=== PATIENT | male | born 1930 | race Hispanic/Latino ===

== ENCOUNTER 2020-05-14 06:05 | Day surgery (SDC) | payer MEDICARE, OTHER ==
[2020-05-11 13:15] LABS: EOSINOPHILS % (AUTO) 2.1 % (0.0-8.0); HEMATOCRIT 40.3 % (42-54); LYMPHOCYTES % (AUTO) 35.3 % (21.0-51.0); MEAN CORPUSCULAR HEMOGLOBIN 30.8 pg (27.0-33.0); MEAN CORPUSCULAR VOLUME 93.3 fL (79-99); MONOCYTES % (AUTO) 8.3 % (3.0-13.0); NEUTROPHILS % (AUTO) 52.8 % (40.0-77.0); PLATELET COUNT (AUTO) 324 K/uL (130-400); RED BLOOD CELL COUNT(AUTO) 4.32 MIL/uL (4.50-6.20); RED CELL DISTRIBUTION WIDTH 14.1 % (11.0-15.5); WHITE BLOOD COUNT (AUTO) 9.4 K/uL (4.8-10.8)
[2020-05-11 13:17] LABS: APPEARANCE,URINE Clear (CLEAR); BILIRUBIN,URINE Negative (NEGATIVE); COLOR,URINE Yellow (YELLOW); GLUCOSE, URINE (UA) Negative (NEGATIVE); KETONES,URINE Negative (NEGATIVE); LEUKOCYTE ESTERASE ,URINE Negative (NEGATIVE); NITRATE,URINE Negative (NEGATIVE); OCCULT BLOOD,URINE Negative (NEGATIVE); PROTEIN,URINE Negative (NEGATIVE)
[2020-05-11 13:35] LABS: CREATININE 1.8 mg/dL (0.5-1.5); POTASSIUM 4.6 mmol/L (3.5-5.1)
[2020-05-11 13:39] LABS: INR 1.02 (0.85-1.15); PARTIAL THROMBOPLASTIN TIME 24.3 SEC (26.3-35.5)
--- NOTE | 2020-05-11 16:33 | NUR ---
DR YBARRA CALLED AND MADE AWARE OF ABNORMAL LABS AND IODINE ALLERGY- ORDERS RECEIVED FOR IV NS AT 150L/HR , SOLUMEDROL 125 MG IV, BENADRYL 25MG IV PRIOR TO PROCEDURE
[2020-05-11 17:10] VITALS: BP 103/51
[2020-05-14] VITALS (9 sets, daily range): BP systolic 120–146; BP diastolic 56–85
[~2020-05-14] VITALS: Ht 165.1 cm; Wt 72.6 kg
[~2020-05-14 06:05] MED LIST: AEC81 PO; AMLO-258 PO; ATOR40TA71 PO; BRIM5DRO OD; CILO50TA PO; FENO160T16 PO; FINA5TAB41 PO; FLUT16H NASAL; FURO20TA4 PO; LOSA25TA41 PO; MEMA10TA55 PO; METO-408 PO; NITR0.4T50 SL; OMEP20CA12 PO; RANO10005 PO; REPA2TAB8 PO; TRAV2.5D OU; TRULICITY SQ
[2020-05-14] MEDS ORDERED: SODIUM CHLORIDE 0.9% 1000ML 1,000 ML IV ONE (06:28)
[2020-05-14 06:49] LABS: CREATININE 1.8 mg/dL (0.5-1.5); POTASSIUM 4.6 mmol/L (3.5-5.1)
--- NOTE | 2020-05-14 07:18 | NUR ---
PROCEDURE PT HERE FOR PROCEDURE. DENIES ANY PAIN AT THIS TIME. AT BEDSIDE.
[2020-05-14] MEDS ORDERED: SODIUM CHLORIDE 0.9% 1000ML 1,000 ML IV SCH ×2 (08:00→12:45)
[2020-05-14] MEDS ORDERED: METHYLPREDNISOLONE SOD SUCC 125MG/2ML VIAL ONE (10:34)
[2020-05-14] MEDS ORDERED: DiphenhydrAMINE HCL 50 MG/ML VIAL ONE (10:34)
[2020-05-14] MEDS ORDERED: FENTANYL CITRATE PF 50 MCG/1 ML 2ML VIAL ONE ×2 (11:18→12:28)
[2020-05-14] MEDS ORDERED: NITROGLYCERIN 2 MG/VIAL VIAL IV ONE (11:18)
[2020-05-14] MEDS ORDERED: IODIXANOL 320 MG/ML 100 ML VIAL ONE (11:18)
[2020-05-14] MEDS ORDERED: NICARDIPINE HCL 25 MG/10 ML ML IV ONE (11:18)
[2020-05-14] MEDS ORDERED: HEPARIN SODIUM 1000UNIT/ML 10ML VIAL ONE (11:18)
[2020-05-14] MEDS ORDERED: MIDAZOLAM HCL 1 MG/ML 2ML VIAL ONE (11:18)
[2020-05-14] MEDS ORDERED: LIDOCAINE HCL 2% 20ML ONE (11:18)
[2020-05-14] MEDS ORDERED: CLOPIDOGREL BISULFATE 300 MG TAB ONE (11:58)
[2020-05-14] MEDS ORDERED: ASPIRIN 325MG EC TAB 325 MG TABLET.DR PO ONE (12:33)
--- NOTE | 2020-05-14 13:00 | NUR ---
PROCEDURE PT RETURNED FROM PROCEDURE. MYNX TO LEFT GROIN. SOFT TO TOUCH. INSTRUCTED BOTH PT AND IN REGARDS TO NOT LIFTING HEAD UP OFF OF BED OR MOVING LEFT LEG. BOTH VERBALIZED UNDERSTANDING.
--- NOTE | 2020-05-14 14:35 | NUR ---
REPORT RECEIVED FROM ANTHONY HARDWICK RN USING SBAR AT BEDSIDE. DRESSING TO LEFT GROIN DRY/INTACT. NO HEMATOMA/BLEEDING NOTED. AREA SOFT/NONTENDER.
--- NOTE | 2020-05-14 14:35 | NUR ---
REPORT REPORT GIVEN TO KELLIE CAMPUZANO. NO BLEEDING, OOZING NOTED TO SITE.
--- NOTE | 2020-05-14 17:08 | NUR ---
patient discharged from facility via wheelchair by dahlia hilliard rn. patient assisted into private vehicle by nurse, driven by family.
== END 2020-05-14 17:10 | disposition home or self-care (01) ==
LOC: DAH 06:05
PROVIDERS: ATTEND Internal Medicine Cardiovascular Disease
DX: I70.211 Atherosclerosis of native arteries of extremities with intermittent claudication, right leg (principal); E11.51 Type 2 diabetes mellitus with diabetic peripheral angiopathy without gangrene; E11.22 Type 2 diabetes mellitus with diabetic chronic kidney disease; I12.9 Hypertensive chronic kidney disease with stage 1 through stage 4 chronic kidney disease, or unspecified chronic kidney disease; N18.9 Chronic kidney disease, unspecified; I25.10 Atherosclerotic heart disease of native coronary artery without angina pectoris; E78.5 Hyperlipidemia, unspecified; Z79.01 Long term (current) use of anticoagulants; Z79.899 Other long term (current) drug therapy; Z98.890 Other specified postprocedural states; Z79.82 Long term (current) use of aspirin; Z88.8 Allergy status to other drugs, medicaments and biological substances; Z91.018 Allergy to other foods; Z95.1 Presence of aortocoronary bypass graft
CPT/HCPCS: 36247; 36415 ×2; 71045; 75625; 75716; 80048 ×2; 81003; 82948 ×2; 85025; 85610; 85730; 93005; A4215; A4216; A4221; A4223 ×3; A4606; A4663; C1760; C1769 ×2; C1887; C1893; C1894 ×2; J1200; J1644 ×2; J2250; J2930; J3010 ×2; J3490 ×3; J7030 ×2; Q9967; 96360; 96361; 99156; 99157

== ENCOUNTER 2020-06-08 07:41 | Day surgery (SDC) | payer MEDICARE, OTHER ==
[2020-06-06 12:53] LABS: HEMATOCRIT 42.6 % (42-54); MEAN CORPUSCULAR HEMOGLOBIN 30.6 pg (27.0-33.0); MEAN CORPUSCULAR HGB CONC 32.4 g/dL (32.0-36.0); MEAN CORPUSCULAR VOLUME 94.5 fL (79-99); PLATELET COUNT (AUTO) 338 K/uL (130-400); RED BLOOD CELL COUNT(AUTO) 4.51 MIL/uL (4.50-6.20); RED CELL DISTRIBUTION WIDTH 12.8 % (11.0-15.5); WHITE BLOOD COUNT (AUTO) 8.4 K/uL (4.8-10.8)
[2020-06-06 13:11] LABS: CREATININE 1.5 mg/dL (0.5-1.5)
[2020-06-06 13:14] LABS: INR 1.04 (0.85-1.15); PARTIAL THROMBOPLASTIN TIME 25.3 SEC (26.3-35.5); PROTHROMBIN TIME 11.2 SEC (9.6-11.6)
[2020-06-06 13:52] LABS: LYMPHOCYTES % (MANUAL) 38 % (22-44); MONOCYTES % (MANUAL) 6 % (2-9); SEGMENTED NEUTROPHILS % 56 % (40-70)
[2020-06-06 13:53] LABS: MAN.DIFF COMMENT-IMPRESSION MANUAL DIFFERENTIAL
[2020-06-06 13:55] LABS: PLATELET MORPHOLOGY COMMENT ADEQUATE
[2020-06-07 14:06] VITALS: BP 126/58
--- NOTE | 2020-06-07 15:36 | NUR ---
CXR/EKG ABNORMAL EKG AND CXR REPORTED TO LIZY/DR. YBARRA AT [facility]. NO NEW TELEPHONE ORDERS RECEIVED. OK TO PROCEED WITH SCHEDULED PROCEDURE.
[2020-06-08] VITALS (9 sets, daily range): BP systolic 114–134; BP diastolic 55–71
[~2020-06-08] VITALS: Ht 165.1 cm; Wt 72.9 kg
[~2020-06-08 07:41] MED LIST changes: -BRIM5DRO OD; +DiphenhydrAMINE HCL 50 MG/ML VIAL IVP SCH; +FISH1CAP27 PO; +METHYLPREDNISOLONE SOD SUCC 125MG/2ML VIAL IVP SCH; +SODIUM CHLORIDE 0.9% 500ML 500 ML IV SCH; -TRAV2.5D OU; +UBID100C45 PO
[2020-06-08] MEDS ORDERED: SODIUM CHLORIDE 0.9% 1000ML 1,000 ML IV ONE (08:30)
[2020-06-08] MEDS ORDERED: HEPARIN SODIUM 1000UNIT/ML 10ML VIAL ONE (12:26)
[2020-06-08] MEDS ORDERED: NITROGLYCERIN 2 MG/VIAL VIAL IV ONE (12:26)
[2020-06-08] MEDS ORDERED: FENTANYL CITRATE PF 50 MCG/1 ML 2ML VIAL ONE (12:27)
[2020-06-08] MEDS ORDERED: LIDOCAINE HCL 2% 20ML ONE (12:27)
[2020-06-08] MEDS ORDERED: IODIXANOL 320 MG/ML 100 ML VIAL ONE (12:27)
[2020-06-08] MEDS ORDERED: MIDAZOLAM HCL 1 MG/ML 2ML VIAL ONE (12:27)
--- NOTE | 2020-06-08 12:35 | NUR ---
Transport to clinical lab specialist Taken to clinical lab specialist via bed. Report given to Report given to Car HOPKINS A&O. Denies pain. at bedside with belongings.
[2020-06-08] MEDS ORDERED: ASPIRIN 325MG EC TAB 325 MG TABLET.DR PO ONE (13:08)
[2020-06-08] MEDS ORDERED: CLOPIDOGREL BISULFATE 300 MG TAB ONE (13:09)
[2020-06-08] MEDS ORDERED: SODIUM CHLORIDE 0.9% 1000ML 1,000 ML IV SCH (15:15)
--- NOTE | 2020-06-08 15:40 | NUR ---
elimination: voided 350 cc yelow color urine per urinal.
== END 2020-06-08 18:40 | disposition home or self-care (01) ==
LOC: DAH 07:41
PROVIDERS: ATTEND Internal Medicine Cardiovascular Disease
DX: I70.201 Unspecified atherosclerosis of native arteries of extremities, right leg (principal); I25.10 Atherosclerotic heart disease of native coronary artery without angina pectoris; Z95.1 Presence of aortocoronary bypass graft; I12.9 Hypertensive chronic kidney disease with stage 1 through stage 4 chronic kidney disease, or unspecified chronic kidney disease; E11.22 Type 2 diabetes mellitus with diabetic chronic kidney disease; N18.30 Chronic kidney disease, stage 3 unspecified; E86.0 Dehydration; E78.5 Hyperlipidemia, unspecified; Z91.048 Other nonmedicinal substance allergy status; Z88.8 Allergy status to other drugs, medicaments and biological substances; Z79.01 Long term (current) use of anticoagulants; Z79.899 Other long term (current) drug therapy
CPT/HCPCS: 36415; 37225; 71045; 80048; 82948; 85025; 85610; 85730; 93005; 96360; 96361; A4215; A4221; A4222; A4223; A4663; C1760; C1769 ×2; C1874; C1887 ×2; C1893; C1894 ×2; J1200; J1644 ×3; J2250; J2930; J3010; J3490 ×2; J7030; Q9967; 37224; 99156; 99157

== ENCOUNTER 2020-10-02 12:00 | Inpatient (IN) | payer MEDICARE, OTHER ==
[~2020-10-02] VITALS: Ht 165.1 cm; Wt 75.2 kg
[~2020-10-02 12:00] MED LIST changes: -DiphenhydrAMINE HCL 50 MG/ML VIAL IVP SCH; -METHYLPREDNISOLONE SOD SUCC 125MG/2ML VIAL IVP SCH; -NITR0.4T50 SL; -SODIUM CHLORIDE 0.9% 500ML 500 ML IV SCH; -UBID100C45 PO
[2020-10-02 15:26] LABS: BASOPHILS % (AUTO) 1.1 % (0.0-5.0); EOSINOPHILS % (AUTO) 3.9 % (0.0-8.0); HEMATOCRIT 42.8 % (42-54); LYMPHOCYTES % (AUTO) 26.3 % (21.0-51.0); MEAN CORPUSCULAR HEMOGLOBIN 29.4 pg (27.0-33.0); MEAN CORPUSCULAR HGB CONC 32.5 g/dL (32.0-36.0); MEAN CORPUSCULAR VOLUME 90.7 fL (79-99); MONOCYTES % (AUTO) 8.1 % (3.0-13.0); NEUTROPHILS % (AUTO) 60.4 % (40.0-77.0); PLATELET COUNT (AUTO) 357 K/uL (130-400); RED BLOOD CELL COUNT(AUTO) 4.72 MIL/uL (4.50-6.20); RED CELL DISTRIBUTION WIDTH 13.1 % (11.0-15.5); WHITE BLOOD COUNT (AUTO) 9.8 K/uL (4.8-10.8)
[2020-10-02 15:41] LABS: INR 1.12 (0.85-1.15); PROTHROMBIN TIME 12.1 SEC (9.6-11.6)
[2020-10-02 15:43] LABS: PARTIAL THROMBOPLASTIN TIME 27.6 SEC (26.3-35.5)
[2020-10-02 15:46] LABS: ALBUMIN 3.9 g/dL (3.5-5.0); BILIRUBIN,TOTAL 0.6 mg/dL (0.2-1.0); CREATININE 1.8 mg/dL (0.5-1.5); POTASSIUM 4.8 mmol/L (3.5-5.1)
[2020-10-03] MEDS ORDERED: PRED5DRO25 (11:33)
[2020-10-03] MEDS ORDERED: TRAV2.5D (11:33)
[2020-10-03] MEDS ORDERED: BRIM5DRO (11:33)
[2020-10-03 11:40] VITALS: BP 147/63
[2020-10-04] VITALS (22 sets, daily range): BP systolic 92–138; BP diastolic 47–63
[2020-10-04] MEDS ORDERED: CLINDAMYCIN IVPB 900MG/50ML 0 ML IV ONE (07:24)
[2020-10-04] MEDS: CEFAZOLIN SODIUM 1 GM VIAL IVP ONE ×2 (07:29→10:42)
[2020-10-04] MEDS ORDERED: 0.9%NACL 1000ML 1,000 ML IV ONE (09:02)
[2020-10-04] MEDS ORDERED: NEOSTIGMINE 5MG/5ML SYR IV ONE (10:18)
[2020-10-04] MEDS ORDERED: LIDOCAINE PF 100MG/5ML (2%) SYRINGE 5ML ONE ×2 (10:18→11:38)
[2020-10-04] MEDS ORDERED: GLYCOPYRROLATE 1 MG/5 ML SYRINGE ONE (10:18)
[2020-10-04] MEDS ORDERED: PROPOFOL 10 MG/ML 20ML VIAL IV ONE (10:18)
[2020-10-04] MEDS ORDERED: ONDANSETRON 4MG INJ ONE (10:18)
[2020-10-04] MEDS ORDERED: DEXAMETHASONE SOD PHOSPHATE 10MG/ML 1ML VIAL ONE (10:18)
[2020-10-04] MEDS ORDERED: ROCURONIUM 10MG/1ML SYR 10 MG/ML ML ONE (10:18)
[2020-10-04] MEDS ORDERED: SUCCINYLCHOLINE CHLORIDE 20 MG/ML 10 ML VIAL ONE (10:18)
[2020-10-04] MEDS ORDERED: FENTANYL CITRATE PF 50 MCG/1 ML 2ML VIAL ONE (10:19)
[2020-10-04] MEDS ORDERED: PHENYLEPHRINE HCL 10 MG/ML 1ML VIAL IV ONE (11:38)
[2020-10-04] MEDS ORDERED: ACETAMINOPHEN 325 MG TAB PO PRN (11:45)
[2020-10-04] MEDS ORDERED: SUGAMMADEX SODIUM 200 MG/2 ML VIAL IV ONE (12:57)
[2020-10-04] MEDS: REPAGLINIDE PO SCH ×2 (14:00→21:00)
[2020-10-04] MEDS: TRAMADOL HCL 50 MG TABLET PO PRN ×2 (16:33→21:09)
[2020-10-04] MEDS: CEFAZOLIN SODIUM 1 GM VIAL IVP SCH (18:35)
[2020-10-04] MEDS: PREDNISOLONE 1% DROPS OP SCH (21:00)
[2020-10-04] MEDS: MEMANTINE HCL 5 MG TABLET PO SCH (21:09)
[2020-10-04] MEDS: RANOLAZINE 500 MG TAB.SR.12H PO SCH (21:09)
[2020-10-04] MEDS: CILOSTAZOL 100 MG TAB PO SCH (21:09)
[2020-10-04] MEDS: LATANOPROST 2.5 ML DROPS OP SCH (21:16)
[2020-10-04] MEDS: TIMOLOL MALEATE 0.5% 5 ML BOTTLE OP SCH (21:17)
[2020-10-04] MEDS: BRIMONIDINE TARTRATE 0.2% 5 ML BOTTLE OP SCH (21:17)
[2020-10-05] MEDS: CEFAZOLIN SODIUM 1 GM VIAL IVP SCH ×2 (03:35→15:48)
[2020-10-05 04:00] VITALS: BP 132/69
[2020-10-05 05:25] LABS: HEMATOCRIT 37.5 % (42-54); MEAN CORPUSCULAR HEMOGLOBIN 29.5 pg (27.0-33.0); MEAN CORPUSCULAR HGB CONC 33.1 g/dL (32.0-36.0); MEAN CORPUSCULAR VOLUME 89.3 fL (79-99); RED BLOOD CELL COUNT(AUTO) 4.2 MIL/uL (4.50-6.20); RED CELL DISTRIBUTION WIDTH 13.4 % (11.0-15.5); WHITE BLOOD COUNT (AUTO) 10.8 K/uL (4.8-10.8)
[2020-10-05 05:42] LABS: CREATININE 1.4 mg/dL (0.5-1.5); POTASSIUM 3.7 mmol/L (3.5-5.1)
[2020-10-05 08:00] VITALS: BP 136/67
[2020-10-05] MEDS: PREDNISOLONE 1% DROPS OP SCH ×2 (09:00→21:14)
[2020-10-05] MEDS: REPAGLINIDE PO SCH ×3 (09:00→21:00)
[2020-10-05] MEDS: FLUTICASONE PROPIONATE 50MCG/SPRAY 16 GM BOTTLE NS SCH (09:00)
[2020-10-05] MEDS: LOSARTAN 25 MG TABLET PO SCH (09:00)
[2020-10-05] MEDS: **HM**(Fenofibrate 160 MG PO SCH (09:00)
[2020-10-05] MEDS: RANOLAZINE 500 MG TAB.SR.12H PO SCH ×2 (09:09→21:15)
[2020-10-05] MEDS: AMLODIPINE 5 MG TAB PO SCH (09:09)
[2020-10-05] MEDS: METOPROLOL SUCCINATE 50 MG TAB.SR.24H PO SCH (09:10)
[2020-10-05] MEDS: PANTOPRAZOLE 40 MG TAB DR PO SCH (09:10)
[2020-10-05] MEDS: FISH OIL 1000 MG/CAP PO SCH (09:10)
[2020-10-05] MEDS: FINASTERIDE 5 MG TABLET PO SCH (09:10)
[2020-10-05] MEDS: ASPIRIN 81 MG EC TAB PO SCH (09:10)
[2020-10-05] MEDS: MEMANTINE HCL 5 MG TABLET PO SCH ×2 (09:10→21:15)
[2020-10-05] MEDS: ATORVASTATIN 40 MG TABLET PO SCH (09:10)
[2020-10-05] MEDS: FUROSEMIDE 20 MG TABLET PO SCH (09:11)
[2020-10-05] MEDS: CILOSTAZOL 100 MG TAB PO SCH ×2 (09:11→21:15)
[2020-10-05] MEDS: BRIMONIDINE TARTRATE 0.2% 5 ML BOTTLE OP SCH ×2 (09:11→21:19)
[2020-10-05] MEDS: TIMOLOL MALEATE 0.5% 5 ML BOTTLE OP SCH ×2 (09:12→21:19)
[2020-10-05] MEDS ORDERED: KCL 20 MEQ ERTAB PO SCH (10:15)
[2020-10-05 12:00] VITALS: BP 143/57
[2020-10-05] MEDS ORDERED: CEFAZOLIN SODIUM 1 GM VIAL ONE (15:46)
[2020-10-05] MEDS ORDERED: KCL 20 MEQ ERTAB PO ONE (15:46)
[2020-10-05 16:00] VITALS: BP 135/66
[2020-10-05] MEDS ORDERED: CLOPIDOGREL 300MG TAB PO SCH (17:00)
[2020-10-05 20:00] VITALS: BP 125/58
[2020-10-05] MEDS: TRAMADOL HCL 50 MG TABLET PO PRN ×2 (21:16→21:18)
[2020-10-05] MEDS: LATANOPROST 2.5 ML DROPS OP SCH (21:19)
[2020-10-06] VITALS: BP 115/61
[2020-10-06 04:00] VITALS: BP 98/51
[2020-10-06 08:00] VITALS: BP 121/64
[2020-10-06] MEDS ORDERED: CLOPIDOGREL 75MG TAB PO SCH (09:00)
[2020-10-06] MEDS: FLUTICASONE PROPIONATE 50MCG/SPRAY 16 GM BOTTLE NS SCH (09:00)
[2020-10-06] MEDS: **HM**(Fenofibrate 160 MG PO SCH (09:00)
[2020-10-06 12:00] VITALS: BP 117/61
[2020-10-06] MEDS: AMLODIPINE 5 MG TAB PO SCH (12:10)
[2020-10-06] MEDS: PANTOPRAZOLE 40 MG TAB DR PO SCH (12:11)
[2020-10-06] MEDS: RANOLAZINE 500 MG TAB.SR.12H PO SCH ×2 (12:11→20:26)
[2020-10-06] MEDS: ATORVASTATIN 40 MG TABLET PO SCH (12:11)
[2020-10-06] MEDS: FINASTERIDE 5 MG TABLET PO SCH (12:11)
[2020-10-06] MEDS: CLOPIDOGREL 75MG TAB PO SCH (12:11)
[2020-10-06] MEDS: ASPIRIN 81 MG EC TAB PO SCH (12:11)
[2020-10-06] MEDS: LOSARTAN 25 MG TABLET PO SCH (12:12)
[2020-10-06] MEDS: METOPROLOL SUCCINATE 50 MG TAB.SR.24H PO SCH (12:12)
[2020-10-06] MEDS: CILOSTAZOL 100 MG TAB PO SCH ×2 (12:12→20:25)
[2020-10-06] MEDS: FISH OIL 1000 MG/CAP PO SCH (12:12)
[2020-10-06] MEDS: MEMANTINE HCL 5 MG TABLET PO SCH ×2 (12:13→20:26)
[2020-10-06] MEDS: FUROSEMIDE 20 MG TABLET PO SCH (12:13)
[2020-10-06] MEDS: PREDNISOLONE 1% DROPS OP SCH ×2 (12:25→20:27)
[2020-10-06] MEDS: TIMOLOL MALEATE 0.5% 5 ML BOTTLE OP SCH ×2 (12:28→20:27)
[2020-10-06] MEDS: BRIMONIDINE TARTRATE 0.2% 5 ML BOTTLE OP SCH ×2 (12:29→20:27)
[2020-10-06] MEDS: REPAGLINIDE PO SCH ×3 (12:30→20:27)
[2020-10-06 16:00] VITALS: BP 143/61
[2020-10-06 20:00] VITALS: BP 100/54
[2020-10-06] MEDS: LATANOPROST 2.5 ML DROPS OP SCH (20:26)
[2020-10-07] VITALS: BP 118/45
[2020-10-07 04:00] VITALS: BP 102/49
[2020-10-07 08:23] VITALS: BP 102/54
[2020-10-07] MEDS: FLUTICASONE PROPIONATE 50MCG/SPRAY 16 GM BOTTLE NS SCH (09:00)
[2020-10-07] MEDS: REPAGLINIDE PO SCH (09:00)
[2020-10-07] MEDS: **HM**(Fenofibrate 160 MG PO SCH (09:00)
[2020-10-07] MEDS: CILOSTAZOL 100 MG TAB PO SCH (11:26)
[2020-10-07] MEDS: RANOLAZINE 500 MG TAB.SR.12H PO SCH (11:26)
[2020-10-07] MEDS: FUROSEMIDE 20 MG TABLET PO SCH (11:27)
[2020-10-07] MEDS: AMLODIPINE 5 MG TAB PO SCH (11:27)
[2020-10-07] MEDS: ASPIRIN 81 MG EC TAB PO SCH (11:27)
[2020-10-07] MEDS: CLOPIDOGREL 75MG TAB PO SCH (11:29)
[2020-10-07] MEDS: LOSARTAN 25 MG TABLET PO SCH (11:30)
[2020-10-07] MEDS: METOPROLOL SUCCINATE 50 MG TAB.SR.24H PO SCH (11:30)
[2020-10-07] MEDS: FINASTERIDE 5 MG TABLET PO SCH (11:32)
[2020-10-07] MEDS: MEMANTINE HCL 5 MG TABLET PO SCH (11:32)
[2020-10-07] MEDS: PANTOPRAZOLE 40 MG TAB DR PO SCH (11:33)
[2020-10-07] MEDS: FISH OIL 1000 MG/CAP PO SCH (11:33)
[2020-10-07] MEDS: ATORVASTATIN 40 MG TABLET PO SCH (11:33)
[2020-10-07] MEDS: BRIMONIDINE TARTRATE 0.2% 5 ML BOTTLE OP SCH (11:34)
[2020-10-07] MEDS: PREDNISOLONE 1% DROPS OP SCH (11:35)
[2020-10-07] MEDS: TIMOLOL MALEATE 0.5% 5 ML BOTTLE OP SCH (11:35)
[2020-10-07 12:10] VITALS: BP 146/77
[2020-10-07 12:14] VITALS: BP 121/49
[2020-10-07] MEDS ORDERED: CLOP75TA14 PO (13:38)
[2020-10-11] MEDS ORDERED: TRULICITY 0.75 MG/0.5 ML SQ SCH (09:00)
[2021-02-14] MEDS ORDERED: GARL1000 PO (11:00)
[2021-02-14] MEDS ORDERED: UBID10CA6 PO (11:00)
[2021-02-14] MEDS ORDERED: NITR0.4T50 SL (11:00)
[2021-02-14] MEDS ORDERED: CILO100T PO (11:00)
[2021-05-16] MEDS ORDERED: ETAN50PE3 SQ (13:30)
[2021-05-16] MEDS ORDERED: CILO50TA PO (13:30)
[2021-05-16] MEDS ORDERED: BRIM5DRO OP (13:31)
[2021-06-24] MEDS ORDERED: LOSA25TA41 PO (19:27)
[2021-06-24] MEDS ORDERED: ASPI-1443 PO (19:28)
[2021-06-24] MEDS ORDERED: OMEP-420 PO (19:28)
[2021-06-24] MEDS ORDERED: FURO20TA4 PO (19:29)
[2021-06-24] MEDS ORDERED: DULA1.5P SQ (19:34)
[2021-06-24] MEDS ORDERED: FLUT15.812 NS (19:35)
[2021-06-24] MEDS ORDERED: UBID100C45 PO (21:45)
[2021-06-25] MEDS ORDERED: PRED5TAB PO (11:16)
[2021-06-25] MEDS ORDERED: TRA (11:16)
[2021-06-25] MEDS ORDERED: CLOP75TA32 PO (11:16)
== END 2020-10-07 16:00 | disposition home or self-care (01) | DRG 254 ==
LOC: DAHIP 10-04 06:04 → EDSTATUS 10-04 12:00 → 4DH 10-04 14:33
PROVIDERS: ADMIT Thoracic Surgery (Cardiothoracic Vascular Surgery); ATTEND Thoracic Surgery (Cardiothoracic Vascular Surgery)
PROC: 041K0KN Bypass Right Femoral Artery to Posterior Tibial Artery with Nonautologous Tissue Substitute, Open Approach (ICD-10-PCS; principal; 2020-10-04 10:16)
DX: E11.51 Type 2 diabetes mellitus with diabetic peripheral angiopathy without gangrene (principal); E11.22 Type 2 diabetes mellitus with diabetic chronic kidney disease; Z20.822 Contact with and (suspected) exposure to COVID-19; Z88.8 Allergy status to other drugs, medicaments and biological substances; Z91.041 Radiographic dye allergy status; I25.10 Atherosclerotic heart disease of native coronary artery without angina pectoris; Z95.1 Presence of aortocoronary bypass graft; E78.5 Hyperlipidemia, unspecified; I12.9 Hypertensive chronic kidney disease with stage 1 through stage 4 chronic kidney disease, or unspecified chronic kidney disease; N18.30 Chronic kidney disease, stage 3 unspecified; Z82.49 Family history of ischemic heart disease and other diseases of the circulatory system; Z83.3 Family history of diabetes mellitus; Z87.891 Personal history of nicotine dependence; Z79.899 Other long term (current) drug therapy
CPT/HCPCS: 36415; 71045; 80048; 80053; 82948; 85025; 85027; 85610; 85730; 86850; 86900; 86901; 87426; 93005; 97039; A4344; G0378; J0330; J0690; J1100; J1644; J2001; J2370; J2405; J2704; J2710; J3010; J3490; J7030; J7040; J7510; U0003

== ENCOUNTER → 2021-01-26 | Outpatient (CLI) | payer MEDICARE, OTHER ==
[~2021-01-26] MED LIST changes: +BRIM5DRO; +CLOP75TA14 PO; +PRED5DRO25; +TRAV2.5D
== END | disposition home or self-care (01) ==
LOC: SHCH 10:47
PROVIDERS: ATTEND Internal Medicine Cardiovascular Disease
DX: I25.810 Atherosclerosis of coronary artery bypass graft(s) without angina pectoris (principal)
CPT/HCPCS: 93306

== ENCOUNTER → 2021-02-13 | Outpatient (CLI) | payer MEDICARE, OTHER ==
[~2021-02-13] VITALS: Ht 165.1 cm; Wt 72.4 kg
[~2021-02-13] MED LIST changes: +CILO100T PO; +GARL1000 PO; +NITR0.4T50 SL; +UBID10CA6 PO
[2021-02-13 10:50] LABS: BASOPHILS % (AUTO) 0.9 % (0.0-5.0); EOSINOPHILS % (AUTO) 2.6 % (0.0-8.0); HEMATOCRIT 39.5 % (42-54); LYMPHOCYTES % (AUTO) 28.4 % (21.0-51.0); MEAN CORPUSCULAR HEMOGLOBIN 30.6 pg (27.0-33.0); MEAN CORPUSCULAR HGB CONC 32.9 g/dL (32.0-36.0); MEAN CORPUSCULAR VOLUME 92.9 fL (79-99); MONOCYTES % (AUTO) 8.5 % (3.0-13.0); NEUTROPHILS % (AUTO) 59.3 % (40.0-77.0); PLATELET COUNT (AUTO) 266 K/uL (130-400); RED BLOOD CELL COUNT(AUTO) 4.25 MIL/uL (4.50-6.20); RED CELL DISTRIBUTION WIDTH 13.9 % (11.0-15.5); WHITE BLOOD COUNT (AUTO) 7.7 K/uL (4.8-10.8)
[2021-02-13 10:52] LABS: APPEARANCE,URINE Clear (CLEAR); BILIRUBIN,URINE Negative (NEGATIVE); COLOR,URINE Dark Yellow (YELLOW); GLUCOSE, URINE (UA) Negative (NEGATIVE); KETONES,URINE Negative (NEGATIVE); LEUKOCYTE ESTERASE ,URINE Trace (NEGATIVE); NITRATE,URINE Negative (NEGATIVE); OCCULT BLOOD,URINE Negative (NEGATIVE); PROTEIN,URINE Negative (NEGATIVE)
[2021-02-13 11:00] LABS: CREATININE 2.1 mg/dL (0.5-1.5); POTASSIUM 4.9 mmol/L (3.5-5.1)
[2021-02-13 11:02] LABS: INR 1.11 (0.85-1.15)
[2021-02-13 11:05] LABS: BACTERIA,URINE Rare /HPF (None Seen); RBC,URINE 0-1 /HPF (0-1); SQUAMOUS EPITHELIAL CELL,UR Rare /HPF (0-2); WBC,URINE 0-1 /HPF (0-1)
[2021-02-14 09:12] VITALS: BP 108/47
== END | disposition home or self-care (01) ==
LOC: DAH 10:00 → EDSTATUS 10:00
PROVIDERS: ATTEND Internal Medicine Cardiovascular Disease
DX: Z01.810 Encounter for preprocedural cardiovascular examination (principal); Z20.822 Contact with and (suspected) exposure to COVID-19; I73.9 Peripheral vascular disease, unspecified; I25.2 Old myocardial infarction; Z95.1 Presence of aortocoronary bypass graft; Z53.9 Procedure and treatment not carried out, unspecified reason; Z79.01 Long term (current) use of anticoagulants
CPT/HCPCS: 36415; 71045; 80048; 81001; 85025; 85610; 85730; 93005

== ENCOUNTER 2021-05-17 05:55 | Day surgery (SDC) | payer MEDICARE, OTHER ==
[2021-05-15 12:49] LABS: BASOPHILS % (AUTO) 1.1 % (0.0-5.0); EOSINOPHILS % (AUTO) 2.6 % (0.0-8.0); HEMATOCRIT 43.7 % (42-54); LYMPHOCYTES % (AUTO) 39.6 % (21.0-51.0); MEAN CORPUSCULAR HEMOGLOBIN 30.3 pg (27.0-33.0); MEAN CORPUSCULAR HGB CONC 32.3 g/dL (32.0-36.0); MONOCYTES % (AUTO) 9.8 % (3.0-13.0); NEUTROPHILS % (AUTO) 46.5 % (40.0-77.0); PLATELET COUNT (AUTO) 244 K/uL (130-400); RED BLOOD CELL COUNT(AUTO) 4.65 MIL/uL (4.50-6.20); RED CELL DISTRIBUTION WIDTH 13.8 % (11.0-15.5); WHITE BLOOD COUNT (AUTO) 8.1 K/uL (4.8-10.8)
[2021-05-15 12:57] LABS: INR 1.15 (0.85-1.15); PROTHROMBIN TIME 12.4 SEC (9.6-11.6)
[2021-05-15 12:58] LABS: PARTIAL THROMBOPLASTIN TIME 25.4 SEC (26.3-35.5)
[2021-05-15 13:05] LABS: APPEARANCE,URINE Clear (CLEAR); BILIRUBIN,URINE Negative (NEGATIVE); COLOR,URINE Dark Yellow (YELLOW); GLUCOSE, URINE (UA) Negative (NEGATIVE); KETONES,URINE Negative (NEGATIVE); LEUKOCYTE ESTERASE ,URINE Negative (NEGATIVE); NITRATE,URINE Negative (NEGATIVE); OCCULT BLOOD,URINE Negative (NEGATIVE); PROTEIN,URINE Negative (NEGATIVE); UROBILINOGEN,URINE 0.2 mg/dL (0.2-1.0)
[2021-05-15 13:10] LABS: CREATININE 1.6 mg/dL (0.5-1.5); POTASSIUM 4.5 mmol/L (3.5-5.1)
[2021-05-15 13:10] LABS: BACTERIA,URINE Rare /HPF (None Seen); RBC,URINE 0-1 /HPF (0-1); SQUAMOUS EPITHELIAL CELL,UR Rare /HPF (0-2); WBC,URINE 0-1 /HPF (0-1)
[2021-05-16 12:13] VITALS: BP 119/53
[2021-05-17] VITALS (10 sets, daily range): BP systolic 105–132; BP diastolic 56–65
[~2021-05-17] VITALS: Ht 165.1 cm; Wt 73.5 kg
[~2021-05-17 05:55] MED LIST changes: -AEC81 PO; -BRIM5DRO; +BRIM5DRO OP; -CILO100T PO; -CLOP75TA14 PO; +ETAN50PE3 SQ; -FISH1CAP27 PO; -FLUT16H NASAL; -FURO20TA4 PO; -OMEP20CA12 PO; -PRED5DRO25; -TRAV2.5D; -UBID10CA6 PO
[2021-05-17] MEDS ORDERED: 0.9%NACL 1000ML 1,000 ML IV ONE (07:20)
[2021-05-17] MEDS ORDERED: DiphenhydrAMINE HCL 50 MG/ML VIAL ONE (08:14)
[2021-05-17] MEDS ORDERED: SOLU-MEDROL 125MG VIAL ONE (08:15)
[2021-05-17] MEDS ORDERED: HEPARIN 10,000 UNIT/10ML (1,000 UNIT/ML) VIAL ONE (09:15)
[2021-05-17] MEDS ORDERED: NICARDIPINE 25MG INJ IV ONE (09:15)
[2021-05-17] MEDS ORDERED: MIDAZOLAM HCL 1 MG/ML 2ML VIAL ONE (09:15)
[2021-05-17] MEDS ORDERED: NITROGLYCERIN 2 MG VIAL IV ONE (09:15)
[2021-05-17] MEDS ORDERED: FENTANYL CITRATE PF 50 MCG/1 ML 2ML VIAL ONE (09:16)
[2021-05-17] MEDS ORDERED: IODIXANOL 320 MG/ML 100 ML VIAL ONE (09:21)
[2021-05-17] MEDS ORDERED: LIDOCAINE HCL 400MG/20ML VIAL ONE (09:41)
[2021-05-17] MEDS ORDERED: ASPIRIN 325MG EC TAB PO ONE (10:32)
[2021-05-17] MEDS ORDERED: CLOPIDOGREL 300MG TAB ONE (10:32)
[2021-05-17] MEDS ORDERED: 0.9%NACL 1000ML 1,000 ML IV SCH (12:30)
== END 2021-05-17 16:15 | disposition home or self-care (01) ==
LOC: DAH 05:55
PROVIDERS: ATTEND Internal Medicine Cardiovascular Disease
DX: I70.211 Atherosclerosis of native arteries of extremities with intermittent claudication, right leg (principal); Z20.822 Contact with and (suspected) exposure to COVID-19; E11.22 Type 2 diabetes mellitus with diabetic chronic kidney disease; I12.9 Hypertensive chronic kidney disease with stage 1 through stage 4 chronic kidney disease, or unspecified chronic kidney disease; N18.30 Chronic kidney disease, stage 3 unspecified; I25.10 Atherosclerotic heart disease of native coronary artery without angina pectoris; I25.2 Old myocardial infarction; Z95.1 Presence of aortocoronary bypass graft; Z79.899 Other long term (current) drug therapy; Z79.01 Long term (current) use of anticoagulants
CPT/HCPCS: 36415; 37225; 71045; 75716; 80048; 81001; 82948; 85025; 85347 ×2; 85610; 85730; 93005; A4215; A4216; A4221; A4222; A4223 ×3; A4606; A4663; C1724 ×2; C1760; C1769 ×2; C1893; C1894 ×2; J1200; J1644 ×3; J2250; J2930; J3010; J3490 ×2; J7030; Q9967; 96360; 96361; 96374; 96375; 99156; 99157

== ENCOUNTER → 2021-06-24 | Outpatient (CLI) | payer MEDICARE, OTHER ==
[~2021-06-24] VITALS: Ht 165.1 cm; Wt 75.1 kg
[~2021-06-24] MED LIST changes: +0.9%NACL 1000ML 1,000 ML IV ONE; +ASPI-1443 PO; +CEFUROXIME SODIUM 1.5 GM VIAL IVP ONE; +CEFUROXIME SODIUM 1.5 GM VIAL ONE; +CLOP75TA32 PO; +DULA1.5P SQ; +FENTANYL CITRATE PF 50 MCG/1 ML 2ML VIAL ONE; +FLUT15.812 NS; +FURO20TA4 PO; +GLYCOPYRROLATE 1 MG/5 ML SYRINGE ONE; +LIDOCAINE PF 100MG/5ML (2%) SYRINGE 5ML ONE; +MIDAZOLAM HCL 1 MG/ML 2ML VIAL ONE; +NEOSTIGMINE 5MG/5ML SYR IV ONE; +OMEP-420 PO; +ONDANSETRON 4MG INJ ONE; +PRED5TAB PO; +PROPOFOL 10 MG/ML 20ML VIAL IV ONE; +ROCURONIUM BROMIDE 10MG/1ML 5ML VL ONE; +SUCCINYLCHOLINE CHLORIDE 20 MG/ML 10 ML VIAL ONE; +TRA; +UBID100C45 PO
[2021-06-24 12:43] LABS: EOSINOPHILS % (AUTO) 2.4 % (0.0-8.0); HEMATOCRIT 40.9 % (42-54); LYMPHOCYTES % (AUTO) 36.9 % (21.0-51.0); MEAN CORPUSCULAR HEMOGLOBIN 30.6 pg (27.0-33.0); MEAN CORPUSCULAR HGB CONC 32.5 g/dL (32.0-36.0); MONOCYTES % (AUTO) 10.2 % (3.0-13.0); NEUTROPHILS % (AUTO) 49.1 % (40.0-77.0); PLATELET COUNT (AUTO) 268 K/uL (130-400); RED BLOOD CELL COUNT(AUTO) 4.35 MIL/uL (4.50-6.20); WHITE BLOOD COUNT (AUTO) 7.9 K/uL (4.8-10.8)
[2021-06-24 12:52] LABS: HEMOGLOBIN A1C 7.1 % (4.0-6.0); INR 1.11 (0.85-1.15)
[2021-06-24 12:53] LABS: PARTIAL THROMBOPLASTIN TIME 25.1 SEC (26.3-35.5)
[2021-06-24 12:55] LABS: ALBUMIN 3.8 g/dL (3.5-5.0); BILIRUBIN,TOTAL 0.5 mg/dL (0.2-1.0); CREATININE 1.9 mg/dL (0.5-1.5); POTASSIUM 4.6 mmol/L (3.5-5.1); TOTAL PROTEIN, SERUM 7.7 g/dL (6.0-8.3)
[2021-06-24 16:11] VITALS: BP 134/56
[2021-06-25 08:20] VITALS: BP 154/70
== END ==
LOC: DAH 08:00 → UNDOADMIN 06-25 08:45 → DAHIP 06-25 08:45 → EDSTATUS 06-25 12:00 → UNDODISIN 06-25 13:30
PROVIDERS: ATTEND Thoracic Surgery (Cardiothoracic Vascular Surgery)
DX: E11.51 Type 2 diabetes mellitus with diabetic peripheral angiopathy without gangrene (principal); E78.5 Hyperlipidemia, unspecified; I12.9 Hypertensive chronic kidney disease with stage 1 through stage 4 chronic kidney disease, or unspecified chronic kidney disease; E11.22 Type 2 diabetes mellitus with diabetic chronic kidney disease; N18.9 Chronic kidney disease, unspecified; Z95.1 Presence of aortocoronary bypass graft; Z79.899 Other long term (current) drug therapy; Z20.822 Contact with and (suspected) exposure to COVID-19; Z53.8 Procedure and treatment not carried out for other reasons
CPT/HCPCS: 36415; 71046; 80053; 83036; 85025; 85610; 85730; 86850; 86900; 86901; 87635; A6260; 82948; 93005; G0378; J0330; J0697; J2001; J2250; J2405; J2704; J2710; J3010; J3490; J7030